=== PATIENT | female | born 1965 | race Caucasian/White ===

== ENCOUNTER 2023-03-09 19:38 | Emergency (ER) | payer OTHER ==
[2023-03-09] MEDS ORDERED: KETOROLAC TROMETHAMINE 15 MG/ML VIAL IM ONE (19:47)
[2023-03-09] MEDS ORDERED: KETOROLAC TROMETHAMINE 15 MG/ML VIAL ONE (19:53)
[2023-03-09 20:25] VITALS: BP 130/76; PULSE 63; RESP 16; TEMP 98.3; BMI 34.5
[2023-03-09] MEDS ORDERED: DIPHTH,PERTUSS(ACELL),TET 0.5 ML DISP.SYRIN IM ONE ×2 (20:31→20:34)
== END 2023-03-09 21:14 | disposition home or self-care (01) ==
LOC: FER 19:38
PROC: 3E0233Z Introduction of Anti-inflammatory into Muscle, Percutaneous Approach (ICD-10-PCS; principal; 2023-03-09)
PROC: 3E0234Z Introduction of Serum, Toxoid and Vaccine into Muscle, Percutaneous Approach (ICD-10-PCS; 2023-03-09)
DX: S42.302A Unspecified fracture of shaft of humerus, left arm, initial encounter for closed fracture (principal); M79.602 Pain in left arm; W01.0XXA Fall on same level from slipping, tripping and stumbling without subsequent striking against object, initial encounter; Y93.89 Activity, other specified; Y92.009 Unspecified place in unspecified non-institutional (private) residence as the place of occurrence of the external cause
CPT/HCPCS: 73030-TC-LT-FY; 73060-TC-LT-FY; 73070-TC-LT-FY; 90715; 99284-25

== ENCOUNTER 2024-03-22 17:03 | Emergency (ER) | payer OTHER ==
[2024-03-22 17:10] VITALS: BP 135/63; PULSE 63; RESP 18; TEMP 98.4; BMI 37.0
== END 2024-03-22 17:40 | disposition home or self-care (01) ==
LOC: FER 17:03
DX: M79.671 Pain in right foot (principal)
CPT/HCPCS: 73610-TC-RT-FY; 73630-TC-RT-FY; 99283-25